=== PATIENT | male | born 1975 | race Caucasian/White ===

== ENCOUNTER 2018-09-23 11:58 | Emergency (ER) | payer SELFPAY ==
[~2018-09-23] VITALS: Ht 182.9 cm; Wt 90.0 kg
[2018-09-23 13:09] LABS: HEMATOCRIT 48.3 % (39.0-50.0); HEMOGLOBIN 16.2 g/dl (14.0-18.0); IMMATURE GRANULOCYTES 0.5 % (0.0-5.0); MEAN CELL VOLUME 87.2 fL CALC (80.0-100.0); MEAN CORPUSCULAR HGB 29.2 pG CALC (26.0-32.0); MEAN CORPUSCULAR HGB CONC 33.5 g/L CALC (32.0-36.0); NEUT# 5.39 thou/uL (1.82-7.42); RED BLOOD COUNT 5.54 mill/uL (4.70-6.10); RED CELL DISTRI WIDTH 12.7 % (11.5-15.5)
[2018-09-23 13:26] LABS: ALBUMIN 4.2 g/dL (3.2-5.0); ALKALINE PHOSPHATASE 108 u/l (38-126); ANION GAP 16 (6-22 (CALC)); BILIRUBIN, TOTAL 0.4 mg/dL (0.0-1.4); BUN 13 mg/dL (9-20); BUN/CREATININE RATIO 16 (12-20 (CALC)); CARBON DIOXIDE 28 mmol/l (22-30); CHLORIDE 100 mmol/l (95-108); CREATININE 0.8 mg/dL (0.7-1.3); ETHYL ALCOHOL 0 mg/dl (0-30); GFR > 60 ML/MIN (>=60 (CALC)); GFR FOR AFR.AMER. > 60 ML/MIN (>=60 (CALC)); LIPASE 142 u/l (23-300); POTASSIUM 4.3 mmol/l (3.5-5.1); SGOT/AST 38 u/l (17-59); SODIUM 140 mmol/l (137-146); TOTAL PROTEIN 7.3 g/dL (6.3-8.2)
[2018-09-23 13:59] LABS: URINE BILIRUBIN - DIPSTICK NEGATIVE (NEGATIVE); URINE BLOOD DIPSTICK NEGATIVE (NEGATIVE); URINE COLOR YELLOW; URINE GLUCOSE - DIPSTICK NEGATIVE (NEGATIVE); URINE KETONE NEGATIVE (NEGATIVE); URINE LEUK ESTERASE NEGATIVE (NEGATIVE); URINE NITRITE - DIPSTICK NEGATIVE (Negative); URINE PROTEIN - DIPSTICK NEGATIVE (NEG-TRACE); URINE UROBILINOGEN - DIPSTICK 0.2 E.U./dL (0.2)
[2018-09-23 14:02] LABS: BARBITURATES NEGATIVE (NEGATIVE); COCAINE NEGATIVE (NEGATIVE); METHADONE NEGATIVE (NEGATIVE); OXCYCODONE NEGATIVE (NEGATIVE); TETRAHYDROCANNABIONOL NEGATIVE (NEGATIVE); TRICYLIC ANTIDEPRESSANTS NEGATIVE (NEGATIVE)
[2018-09-23 15:00] VITALS: BP 135/88
== END 2018-09-23 15:09 | disposition home or self-care (01) | DRG 948 ==
LOC: ED 11:58
PROVIDERS: Family Medicine
DX: R53.1 Weakness (principal); R10.11 Right upper quadrant pain; B19.20 Unspecified viral hepatitis C without hepatic coma; F17.210 Nicotine dependence, cigarettes, uncomplicated

== ENCOUNTER 2023-09-24 16:47 | Emergency (ER) | payer SELFPAY ==
[~2023-09-24] VITALS: Ht 182.9 cm; Wt 81.0 kg
[2023-09-24 17:21] VITALS: BP 146/87
[2023-09-24 17:30] VITALS: BP 136/97
[2023-09-24] MEDS ORDERED: MAGNESIUM HYDROXIDE 30 ML UDC PO ONE (17:45)
[2023-09-24] MEDS ORDERED: Polyethylene Glycol 3350 17 GM/PKT PO ONE (17:45)
[2023-09-24] MEDS ORDERED: LACTULOSE 20 GM/30 ML UDC PO ONE (17:45)
[2023-09-24 17:46] LABS: BASO% 0.7 % (0-3); HEMATOCRIT 44.7 % (39.0-50.0); HEMOGLOBIN 14.8 g/dl (14.0-18.0); IMMATURE GRANULOCYTES 0.2 % (0.0-5.0); LYMPH% 25.8 % (15-41); MEAN CELL VOLUME 88.3 fL CALC (80.0-100.0); MEAN CORPUSCULAR HGB 29.2 pG CALC (26.0-32.0); MEAN CORPUSCULAR HGB CONC 33.1 g/dL CAL (32.0-36.0); MONO% 12.6 % (2-13); NEUT# 3.5 thou/uL (1.82-7.42); NEUT% 57.7 % (42-76); RED BLOOD COUNT 5.06 mill/uL (4.70-6.10); RED CELL DISTRI WIDTH 12.1 % (11.5-15.5)
[2023-09-24 18:00] VITALS: BP 130/95
[2023-09-24 18:06] LABS: ALBUMIN 4.1 g/dL (3.2-5.0); ALKALINE PHOSPHATASE 63 u/l (38-126); AMYLASE 59 u/l (30-110); ANION GAP 8 (6-22 (CALC)); BUN 20 mg/dL (9-20); BUN/CREATININE RATIO 21 (12-20 (CALC)); CARBON DIOXIDE 32 mmol/l (22-30); CHLORIDE 106 mmol/l (95-108); GFR FOR AFR.AMER. > 60 ML/MIN (>=60 (CALC)); GFR OTHER RACES > 60 ML/MIN (>=60 (CALC)); LIPASE 59 u/l (23-300); SODIUM 142 mmol/l (137-146); TOTAL PROTEIN 6.9 g/dL (6.3-8.2)
[2023-09-24 18:12] LABS: BILIRUBIN, TOTAL 1.2 mg/dL (0.2-1.3); SGOT/AST 67 u/l (17-59)
[2023-09-24 18:30] VITALS: BP 133/91
[2023-09-24 18:41] LABS: URINE BLOOD DIPSTICK Negative (NEGATIVE); URINE GLUCOSE - DIPSTICK Negative (NEGATIVE); URINE KETONE Negative (NEGATIVE); URINE LEUK ESTERASE Negative (NEGATIVE); URINE NITRITE - DIPSTICK Negative (Negative); URINE PROTEIN - DIPSTICK Negative (NEG-TRACE)
[2023-09-24 18:44] LABS: URINE COLOR Yellow
[2023-09-24] MEDS ORDERED: SENOKOT EXTRA17.2 MG PO (18:58)
[2023-09-24] MEDS ORDERED: CONSTULOSE10 GM/15 M PO (18:58)
[2023-09-24 19:00] VITALS: BP 130/87
[2023-09-24] MEDS ORDERED: MAGNESIUM CITRATE 296 ML/BTL PO ONE (19:10)
[2023-09-24 19:20] VITALS: BP 130/87
== END 2023-09-24 19:32 | disposition home or self-care (01) | DRG 392 ==
LOC: ED 16:47
PROVIDERS: Nurse Practitioner
DX: K59.00 Constipation, unspecified (principal); F17.210 Nicotine dependence, cigarettes, uncomplicated